=== PATIENT | male | born 1960 | race Caucasian/White ===

== ENCOUNTER 2017-06-02 10:39 | Emergency (ER) | payer OTHER ==
[~2017-06-02] VITALS: Ht 188 cm; Wt 127.0 kg
[2017-06-02 10:45] VITALS: BP 159/75; PULSE 51; RESP 16; TEMP 98.1; O2SAT 95
[2017-06-02] MEDS ORDERED: HUMALOG (10:57)
--- NOTE | 2017-06-02 11:07 | PD ---
HPI Chief Complaint: Laceration/Skin Injury Time Seen by Provider: 11:03 Travel History International Travel<30 days: No Contact w/Intl Traveler<30days: No Traveled to known affect area: No History of Present Illness HPI 56 YO M presents to the ED for evaluation of right lower lip laceration. Sustained just prior to arrival. The patient was doing a demo job, hit the 2 x 4 with a sledgehammer, the board popped up and hit him in the mouth. Patient states the pain is constant, rated 5/10. No alleviating or exacerbating factors reported. He states that the wood grazed his teeth but he denies any malocclusion, difficulties with opening and closing the mouth. Unsure of last tetanus irritation. PFSH Past Medical History Hx Anticoagulant Therapy: No Diabetes: Yes Patient Takes Glucophage: No Diminished Hearing: No Tetanus Vaccination: Unknown Influenza Vaccination: No Past Surgical History Cholecystectomy: Yes Social History Alcohol Use: No Tobacco Use: No Substance Use: No Allergies-Medications (Allergen,Severity, Reaction): Coded Allergies: morphine (Verified Allergy, Severe, 06/02/17) Reported Meds & Prescriptions Reported Meds & Active Scripts Active Keflex (Cephalexin) 500 Mg Cap 500 Mg PO Q6H 5 Days Ibuprofen 800 Mg Tab 800 Mg PO Q8H PRN Reported [Humalog 70-30] Review of Systems Except as stated in HPI: all other systems reviewed are Neg Physical Exam Narrative GENERAL: Well-nourished, well-developed patient. SKIN: Focused skin assessment warm/dry. There is a 2 cm complex laceration of the bottom lip on the right. No active bleeding or visible foreign body. HEAD: Normocephalic. EYES: No scleral icterus. No injection or drainage. DENTAL: No loose or chipped teeth. No malocclusion. No intraoral injury. No movement of the alveolar ridge. NECK: Supple, trachea midline. No JVD or lymphadenopathy. CARDIOVASCULAR: Regular rate and rhythm without murmurs, gallops, or rubs. RESPIRATORY: Breath sounds equal bilaterally. No accessory muscle use. GASTROINTESTINAL: Abdomen soft, non-tender, nondistended. MUSCULOSKELETAL: No cyanosis, or edema. BACK: Nontender without obvious deformity. No CVA tenderness. Data Data Last Documented VS Vital Signs Date Time Temp Pulse Resp B/P (MAP) Pulse Ox O2 Delivery O2 Flow Rate FiO2 06/02/17 10:45 98.1 51 16 159/75 (103) 95 Orders Orders Tetanus/Diphtheria Tox Adult (Tetanus/Di (06/02/17 11:15) Lidocaine 1% Inj (50 Ml) (Xylocaine 1% I (06/02/17 11:15) Tramadol (Ultram) (06/02/17 11:30) Ed Discharge Order (06/02/17 12:28) MDM Medical Decision Making Medical Screen Exam Complete: Yes Emergency Medical Condition: Yes Differential Diagnosis Laceration versus retained foreign body versus dental injury versus need for tetanus immunization versus other Narrative Course 56 YO M presents to the ED for evaluation of right lower lip laceration. Sustained just prior to arrival. The patient was doing a demo job, hit the 2 x 4 with a sledgehammer, the board popped up and hit him in the mouth. Patient states the pain is constant, rated 5/10. No alleviating or exacerbating factors reported. He states that the wood grazed his teeth but he denies any malocclusion, difficulties with opening and closing the mouth. Unsure of last tetanus irritation. Vitals reviewed. Physical exam reveals a nontoxic- appearing white male in no acute distress. He does have a complex, 2 cm laceration in the lower right lip near the right ankle of the mouth. Tetanus immunization was updated. Laceration repair was performed. Please see my note for details. Patient was administered a single dose of tramadol. He is prescribed a short course of Keflex and anti-inflammatories. He is given detailed instructions on wound care, reasons to return. The patient and his indicated understanding of the discharge instructions and are agreeable to the care plan. He is stable and discharged home. Procedures Procedure Narrative LACERATION LOCATION: Bottom right lip, does not cross the vermilion border LENGTH: 2 cm, complex NUMBER OF STITCHES/OSORIO: 15 REPAIR: The area of the laceration was prepped with Betadine and sterilely draped. The laceration was infiltrated with 1% lidocaine. The wound was copiously irrigated and explored without evidence of foreign body, tendon injury or neurovascular injury. The wound was closed using 5-0 Prolene. This was a 2 layer repair. A thin-layer of antibiotic ointment was applied. The patient was advised to keep the wound clean and dry. Patient tolerated the procedure well. Diagnosis Primary Impression: Lip laceration Qualified Codes: S01.511A - Laceration without foreign body of lip, initial encounter Additional Impression: Immunization, tetanus toxoid Referrals: Primary Care Physician Patient Instructions: General Instructions, Laceration (ED) Additional Instructions: Rest, hydrate. Return to normal, gentle activities as tolerated. Eat a soft diet for the next few days. Avoid salty or spicy foods. Do not use a straw. Rinse the mouth with water after eating. Keep the wound clean and dry. Apply a small amount of Neosporin ointment couple times a day. Take all the antibiotics as prescribed. Ibuprofen 3 times a day for pain and inflammation. Monitor for signs of infection as discussed, return sooner if needed. Follow-up with the primary care provider. Return to the ED for any urgent or emergent medical condition. Med/Other Pt SpecificInfo: Prescription(s) given Scripts Cephalexin (Keflex) 500 Mg Cap 500 MG PO Q6H for Infection for 5 Days, #20 CAP 0 Refills Prov: Mike Hobson MD 06/02/17 Ibuprofen (Ibuprofen) 800 Mg Tab 800 MG PO Q8H Y for Pain/Inflammation, #15 TAB 0 Refills Prov: Mike Hobson MD 06/02/17 Disposition: 01 DISCHARGE HOME Condition: Stable Maru Peacock Jun 02, 2017 11:07
[2017-06-02] MEDS ORDERED: LIDOCAINE HCL 1% 50 ML VIAL INFIL ONE (11:15)
[2017-06-02] MEDS ORDERED: TETANUS/DIPHTHERIA TOXOID ADULT 0.5 ML VIAL IM ONE (11:15)
[2017-06-02] MEDS ORDERED: IBUP800T23 PO (11:29)
[2017-06-02] MEDS ORDERED: traMADol HCL 50 MG TAB PO ONE (11:30)
[2017-06-02] MEDS ORDERED: CEPH-460 PO (12:27)
== END 2017-06-02 12:35 | disposition home or self-care (01) ==
LOC: PHEFT 10:39
DX: S01.511A Laceration without foreign body of lip, initial encounter (principal); E11.9 Type 2 diabetes mellitus without complications; Z23 Encounter for immunization; Z79.4 Long term (current) use of insulin; W20.8XXA Other cause of strike by thrown, projected or falling object, initial encounter; Y99.0 Civilian activity done for income or pay
CPT/HCPCS: 12031; 12051; 90471; 90714